=== PATIENT | male | born 2000 | race African-American/Black ===

== ENCOUNTER 2024-06-05 09:34 | Emergency (ER) | payer OTHER, SELFPAY ==
--- NOTE | 2024-06-05 09:42 | XR_ITS ---
Examination: CT brain head without contrast. 2-D sagittal coronal reconstructions Date and time of exam:June 05, 2024 1014 hours INDICATIONS: Seizure activity today with injury to the head, head pain CTDI: vol (mGy):54.3 DLP: (mGycm):1111 Technique: Multiple CT axial sections of the brain have been obtained, 5 mm slice thickness. Contrast has not been administered. 2-D sagittal, coronal reconstructions have been obtained Low dose protocols were performed. One or more of the following dose reduction techniques were used; automated exposure control, adjustment of the mA and/or KV according to patient size, use of iterative reconstruction technique. Findings: No significant ventricular enlargement. Intra-axial or extra-axial hemorrhage density is not seen. No mass effect or midline shift Basal cisterns are not remarkable. Fourth ventricle is midline. Cranial vault intact. Impression: Negative for acute hemorrhage, mass effect or midline shift Clinical correlation advised and follow-up accordingly
--- NOTE | 2024-06-05 09:43 | XR_ITS ---
Examination: CT cervical spine without contrast 2-D sagittal reconstructions 2-D coronal reconstructions 3-D reconstructions. Exam date and time:June 05, 2024 1014 hours INDICATIONS: Seizure today with injury to neck CTDI:vol (mGy) 8.43 DLP: (mGycm) 196 Technique: Multiple 2 mm axial sections of the cervical spine have been obtained. The coronal and sagittal reconstructions have been obtained. 3-D reconstructions have been obtained. Low dose protocols were performed. One or more of the following dose reduction techniques were used; automated exposure control, adjustment of the mA and/or KV according to patient size, use of iterative reconstruction technique. Findings: Axial sections demonstrate intact base of the skull. C1 exhibit satisfactory relationship to the odontoid. No acute cervical vertebral body fracture seen. Alignment posterior spinous processes satisfactory. Impression: No acute cervical fracture.
--- NOTE | 2024-06-05 09:43 | EKG_ITS ---
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
--- NOTE | 2024-06-05 09:43 | XR_ITS ---
Examination: CT chest, without intravenous contrast. CT abdomen, without intravenous contrast. CT pelvis, without intravenous contrast. 2-D sagittal and coronal reconstructions. 3-D reconstructions. Date and time of exam:June 05, 2024 1041 hours INDICATIONS: Seizures today, patient fell with injury to the chest and abdomen, chest pain abdomen pain CTDI vol (mgy) 4.58 DLP (MGycm)351 Technique: Multiple CT images, 3.0 mm slice thickness, obtained chest, abdomen, pelvis, with the high-resolution 64 slice scanner.. Sagittal and coronal 2-D reconstructions are obtained. 3-D reconstructions Low dose protocols were performed. One or more of the following dose reduction techniques were used; automated exposure control, adjustment of the mA and/or KV according to patient size, use of iterative reconstruction technique. Findings: Thoracic aorta pulmonary arteries appear intact on this limited noncontrast study No hemopericardium No pneumothorax, pulmonary contusion or hemothorax Manubrium body the sternum thoracic vertebral bodies intact Ribs are intact No visualized liver splenic or renal laceration, no perinephric hematoma Aorta intact, no free blood in the abdomen Negative for pneumoperitoneum Urinary bladder intact Lumbar vertebral bodies, bones of the pelvis, sacral segments and hips appear intact No soft tissue contusion IMPRESSION: Thoracic aorta pulmonary arteries intact No hemopericardium, pneumothorax pulmonary contusion or hemothorax No abdominal parenchymal laceration. Abdominal aorta intact. No free blood in the abdomen or pelvis. Osseous structures are intact.
[2024-06-05 09:45] VITALS: BP 130/84; PULSE 74; RESP 16; TEMP 36.7; O2SAT 99
[2024-06-05 09:49] VITALS: PULSE 86; RESP 14; O2SAT 98; BMI 21.7
--- NOTE | 2024-06-05 10:08 | PC.NURSE ---
Patient presents to ED per EMS and staff at [facility] with active seizure. Per EMS patient gcs 3, seizing and administered versed 4mg. Patient now postictal, no apparent distress noted. TCSO at bedside with patient. Patient currently at CT via gurney with tech.
--- NOTE | 2024-06-05 10:11 | EDNOTE_ITS ---
ED Seizures RME/HPI General Chief Complaint: Seizure Stated Complaint: SEIZURE Time Seen by Provider: 06/05/24 09:40 Arrival date/time: 06/05/24 09:34 RME / HPI RME / HPI Narrative: This section includes all my notes and documentations, including HPI, PE, and ED course.? Balbir Sandy MD HPI: 23 year old male with history of seizures presents to the ED BIBA from the [facility], [place] for evaluation of seizure today. Per medics, staff at the [facility], [place] found patient on the floor having a tonic-clonic seizure, lasting ~ 1 minute for them. States when they arrived the patient was having repeated eye twitching and not responsive to painful stimuli; was given 4 mg Versed. On arrival to ED patient is postictal and unable to give any additional history. ROS: Unable to obtain due to current clinical condition. Physical Exam: General:? Postictal. Eyes:? Conjunctivae and lids clear.? PERRL. EOMI. ENT:? No signs of trauma. Neck:? Supple.? Heart:? RRR.? Lungs:? No respiratory distress.? Good air movement.? No rhonchi, wheezing, rales.?? Abdomen:? Soft and nontender.?? Legs:? No clubbing, cyanosis, edema.? Skin:? Warm and dry.?? Neuro (after return to baseline):? Alert and oriented X 3. CN 2-12 grossly normal. No peripheral motor deficits. I reviewed all diagnostic test results. My interpretation of the EKG is?sinus rhythm. My review of the head CT report is?negative for acute hemorrhage, mass effect, or midline shift. My review of the cervical spine report is no acute cervical fracture. My review of the chest/abdomen/pelvis CT report is no hemopericardium, pneumothorax pulmonary contusion or hemothorax. Blood tests and urine tests?unremarkable. At this point, diagnoses include?recurrent seizures. Treatment here included?Vimpat 200 mg IV. Patient returned to baseline and remained stable. Will add Vimpat to his Keppra regimen. Based on my best medical judgment, made decision no further evaluation or treatment indicated at this time.? Patient understands and agrees to the discharge instructions customized and printed, see below. Discharge Instructions from Dr. Sandy printed for you: 1. Exact cause of your recurrent seizures was not determined. But there is no life-threatening condition. Such as stroke or brain tumor. 2. To help prevent future seizures, take Vimpat on top of your current Keppra, until cleared by a doctor taking care of you. 3. On 06/08/2024, see a private doctor for recheck and further care. Including help with more care, such as MRI imaging and referral to see neurologist. 4. Seek immediate medical care with another seizure or with any concerns. Balbir Sandy MD Related Data Previous Rx's ?Medication ?Instructions ?Recorded lacosamide 100 mg tablet (Vimpat) 100 mg PO BID #60 ta bs 06/05/24 Allergies Allergy/AdvReac Type Severity Reaction Status Date / Time No Known Allergies Allergy Verified 06/05/24 10:54 Review of Systems Review of Systems Systems Reviewed: All systems reviewed, normal except as documented Past Medical History Past Medical History NEUROLOGIC: Positive Seizures CARDIAC: Negative Congestive Heart Failure RESPIRATORY: Negative Chronic Obstructive Pulmonary Disease (COPD) GENITOURINARY: Negative Renal Disease ENDOCRINE: Negative Diabetes Mellitus Type 1 or Diabetes Mellitus Type 2 Social History SMOKING STATUS: Never smoker ED Exam Narrative Physical exam: As noted in HPI Course Quality Measures none Orders Category Date Time Status EKG (ED ONLY) *Do not use* NOW Care 06/05/24 09:43 Completed Saline [Insert IV] NOW Care 06/05/24 09:40 Completed Straight [In and Out Catheter] X1 Care 06/05/24 09:[address] cervical spine wo con Stat Exams 06/05/24 09:[address] chest abdomen pelvis wo Stat Exams 06/05/24 09:[address] head/brain wo con Stat Exams 06/05/24 09:42 Completed EKG (ED Only) Stat Exams 06/05/24 09:43 Draft Alcohol, Blood Medical Stat Lab 06/05/24 10:58 Completed CBC Stat Lab 06/05/24 10:30 Completed CMP [Comprehensive Metabolic Panel] Stat Lab 06/05/24 10:58 Completed Drug Screen,Urine Stat Lab 06/05/24 10:45 Completed Magnesium Stat Lab 06/05/24 10:58 Completed TSH [Thyroid Stimulating Hormone] Stat Lab 06/05/24 10:58 Completed Troponin I Stat Lab 06/05/24 10:58 Completed VBG [Venous Blood Gas] Stat Lab 06/05/24 10:30 Completed Lacosamide Ivp [Vimpat IVP] 200 mg Med 06/05/24 12:19 Discontinued Sodium Chloride 0.9% [Ns] 100 ml IV X1 Ondansetron Inj [Zofran Inj] Med 06/05/24 09:40 Discontinued 4 mg IV X1 ONE Sodium Chloride 0.9% 1000 ml [Ns] 1,000 ml Med 06/05/24 09:41 Discontinued IV 999 mls/hr levETIRAcetam INJ [Keppra Inj] Med 06/05/24 09:40 Discontinued 2,000 mg IVP X1 ONE Vital Signs Vital signs: Vital Signs Temperature 98.1 F 06/05/24 09:45 Pulse Rate 74 06/05/24 09:45 Respiratory Rate 16 06/05/24 09:45 Blood Pressure 130/84 06/05/24 09:45 Pulse Oximetry (%) 99 06/05/24 09:45 Pulse ox is 99% on room air which is adequate. Seizure MDM Narrative MDM Narrative:: Amanda Calvin am scribing for and in the presence of Dr. Sandy. Patient data External records reviewed:: [facility] previous records (Per EMR, no previous visits for review. ) and EMS form Clinical information provided by:: EMS Social determinants that could affect healthcare access:: housing (Currently incarcerated ) Patient has the following chronic illnesses:: Seizures How is presenting disease/condition affected by chronic disease/condition?: exacerbated by Evaluation data The following diagnostics were reviewed and interpreted by me:: lab results, radiology exam(s) and EKG tracing(s) Lab and/or radiology exams considered but not ordered:: None Interpretation Summary: My review of the head CT report is?negative for acute hemorrhage, mass effect, or midline shift. My review of the cervical spine report is no acute cervical fracture. My review of the chest/abdomen/pelvis CT report is no hemopericardium, pneumothorax pulmonary contusion or hemothorax. Medications / Prescriptions Medications or Prescriptions considered but not ordered:: None Medication administrations:: Medication Administration History Discontinued Medications Sodium Chloride (Ns) 1,000 mls @ 999 mls/hr IV .Q1H1M ONE Stop: 06/05/24 10:41 Last Infusion: 06/05/24 13:15 Dose: Infused Documented By: Admin: 06/05/24 10:56 Dose: 999 mls/hr Documented By: DESTINY Lacosamide 200 mg/ Sodium (Chloride) 120 mls @ 240 mls/hr IV X1 ONE Stop: 06/05/24 12:20 Last Infusion: 06/05/24 13:42 Dose: Infused Documented By: Admin: 06/05/24 13:12 Dose: 240 mls/hr Documented By: DESTINY Levetiracetam (Levetiracetam Inj 100 Mg/Ml Vial 5ml) 2,000 mg IVP X1 ONE Stop: 06/05/24 09:41 Last Admin: 06/05/24 10:55 Dose: 2,000 mg Documented By: DESTINY Ondansetron HCl (Ondansetron Inj 2 Mg/Ml Inj 2 Ml) 4 mg IV X1 ONE; Protocol Stop: 06/05/24 09:41 Last Admin: 06/05/24 10:56 Dose: 4 mg Documented By: DESTINY Patient given Keppra, zofran, Lacosamide, and IV fluids Consultations Consultation(s) initiated? (list below): No Diagnosis Seizure Differential Diagnosis: intractable seizure disorder, focal seizure, generalized seizure, epileptic seizure and status epilepticus Most likely diagnosis given after review of the tests above:: Recurrent seizure Admission Indicated Admission indicated?: not indicated Explain why admission is indicated or not indicated:: Does not meet admission criteria Admission Request Was there a request for admission?: No Disposition Plan Disposition Plan: Discharge (to Intermediate ) Discharge Attestation Discharge Attestation: The patient and all family members were given an opportunity to ask questions and understood the discharge instructions. Discharge instructions specifically effects, indications for sooner follow up or return to the emergency department, and the expected course of current diagnosis. Patient condition: Stable Discharge Plan Plan Patient Disposition: Intermediate/Court/Law Prescriptions/Referrals Prescriptions/Med Rec: New lacosamide [Vimpat] 100 mg tablet 100 mg PO BID Qty: 60 1RF Referrals: No Primary/Family,Physician [Primary Care Provider] - In 1 week Problem List Clinical Impression: Recurrent seizures Patient/Caregiver Discharge Instructions Discharge Activity: activity as tolerated Education Materials: ED Seizure, Recurrent (Adult) Additional Instructions: Discharge Instructions from Dr. Sandy printed for you: 1. Exact cause of your recurrent seizures was not determined. But there is no life-threatening condition. Such as stroke or brain tumor. 2. To help prevent future seizures, take Vimpat on top of your current Keppra, until cleared by a doctor taking care of you. 3. On 06/08/2024, see a private doctor for recheck and further care. Including help with more care, such as MRI imaging and referral to see neurologist. 4. Seek immediate medical care with another seizure or with any concerns. Print Language: Yakut
[2024-06-05 10:34] LABS: Base Excess, Venous 1 (-3-3); O2 Saturation, Venous 93 % (96-97); PCO2, Venous 36 mmHg (36-56); PO2, Venous 62 mmHg (15-58); pH, Venous 7.45 (7.33-7.66)
[2024-06-05 10:35] LABS: Basophils % (Auto) 1 % (0-2.5); Eosinophils # (Auto) 0.2 Thou/mm3 (0.0-0.5); Eosinophils % (Auto) 3 % (0-10); Hematocrit 40.9 % (41.0-53.0); Hemoglobin 13.8 g/dL (13.5-16.0); Immature Granulocytes % (Auto) 0 % (0-0); Immature Granulocytes Auto 0.01 Thou/mm3 (0.00-0.00); Lymphocytes # (Auto) 1.4 Thou/mm3 (1.0-4.8); Lymphocytes % (Auto) 24 % (10-50); Mean Corpuscular HGB Conc 33.7 g/dl (31.0-37.0); Mean Corpuscular Hemoglobin 29.1 pg (25.0-35.0); Mean Corpuscular Volume 86 fL (80-100); Monocytes # (Auto) 0.8 Thou/mm3 (0.0-0.8); Monocytes % (Auto) 13 % (0-12); Neutrophils # (Auto) 3.5 Thou/mm3 (1.8-7.7); Neutrophils % (Auto) 60 % (37-80); Nucleated Red Blood Cell % 0 /100 WBC (0); Platelet Count 209 Thou/mm3 (140-440); RDW Standard Deviation 41.3 fL (35.1-43.9); Red Blood Count 4.74 Miln/mm3 (4.50-5.90); White Blood Count 5.8 Thou/mm3 (3.8-10.6)
[2024-06-05 10:47] VITALS: BP 120/69; PULSE 60; RESP 16; O2SAT 99
[2024-06-05] MEDS: levETIRAcetam INJ 100 MG/ML VIAL 5ML 2000 MG IVP (10:55)
[2024-06-05] MEDS: SODIUM CHLORIDE 0.9% 1000 ML 1,000 ML 999 ML IV (10:56)
[2024-06-05] MEDS: ONDANSETRON INJ 2 MG/ML INJ 2 ML 4 MG IV (10:56)
[2024-06-05 12:10] LABS: Alanine Aminotransferase 18 U/L (10-49); Albumin/Globulin Ratio 1.9 (1.2-2.2); Alcohol, Blood Medical < 3.0 mg/dL (0-10.0); Alkaline Phosphatase 84 U/L (46-116); Anion Gap 8 (7-16); Aspartate Amino Transferase 22 U/L (0-34); BUN/Creatinine Ratio 11 Ratio (12-20); Bilirubin,Total 0.4 mg/dL (0.3-1.2); Blood Urea Nitrogen 12 mg/dL (9-23); Calcium 9.7 mg/dL (8.3-10.6); Calcium (Corrected) 9.7 mg/dL (8.5-10.1); Carbon Dioxide 28.1 mMol/L (20.0-31.0); Chloride 105 mMol/L (98-107); Creatinine (Component) 1.1 mg/dL (0.6-1.3); Estimated Creatinine Clearance 108.1 mL/min (>60); Globulin 2.6 gm/dL (2.3-3.5); Glucose 85 mg/dL (74-106); Magnesium 2.1 mg/dL (1.6-2.6); Osmolality,Calculated 279 (275-295); Potassium 4.1 mMol/L (3.4-5.1); Sodium 141 mMol/L (136-145); Thyroid Stimulating Hormone 1.22 uIU/mL (0.55-4.78); Total Protein 7.6 gm/dL (5.7-8.2); Troponin I < 0.002 ng/mL (0.0-0.045); eGFR > 60 See Note
[2024-06-05] MEDS: LACOSAMIDE IVP 200 MG in SODIUM CHLORIDE 0.9% 100 ML 240 MG IV (13:12)
[2024-06-05 13:42] LABS: Amphetamine/Methamp Scrn,U Negative (Negative); Barbiturate Screen,Urine Negative (Negative); Benzodiazepines Screen,Urine Positive (Negative); Benzoylecgonine Screen, Ur Negative (Negative); Fentanyl Screen,Urine Negative (Negative); Opiate Screen,Urine Negative (Negative); THC Screen,Urine Negative (Negative)
[2024-06-05 14:29] VITALS: BP 102/58; PULSE 63; RESP 14; TEMP 36.6; O2SAT 99
== END 2024-06-05 14:29 ==
PROVIDERS: Emergency Provider Emergency Medicine
DX: R56.9 Unspecified convulsions (principal)
CPT/HCPCS: 51701; 36415; 70450; 71250; 72125; 74176; 80053; 80307; 80320; 82803; 83735; 84443; 84484; 85025; 93005; 96361; 96365; 99284; C9254; J1953; J2405; J7030; J7050; G0480